=== PATIENT | female | born 1955 | race Caucasian/White ===

== ENCOUNTER 2017-07-30 15:08 | Emergency (ER) | payer OTHER ==
[2017-07-30 15:24] VITALS: RESP 16; TEMP 98.8
--- NOTE | 2017-07-30 17:14 | EDPHY ---
H & P Smoking Status: Former smoker Time Seen by Provider: 07/30/17 16:24 HPI/ROS: CHIEF COMPLAINT: Fell hiking, head injury HISTORY OF PRESENT ILLNESS: 61-year-old female presents to the emergency department by private vehicle after she fell hiking and hit her head. Patient states that she was hiking down a trail and lost her footing and fell and apparently rolled. She does not think that she lost consciousness although she does not remember rolling down. She complains of specially frontal headache. She is also complaining of some neck pain. She sustained multiple abrasions which she stated "blood a lot ". She believes her tetanus shot is current. She denies nausea or vomiting. Denies visual changes. Denies abdominal pain. Denies chest pain or difficulty breathing. She denies any presyncopal symptoms prior to her fall. She sustained abrasions to her upper extremities as well. REVIEW OF SYSTEMS: Constitutional: No fever, no chills. Eyes: No double or blurry vision. ENT: No sore throat. Respiratory: No cough, no shortness of breath. Cardiac: No chest pain. Gastrointestinal: No abdominal pain, vomiting or diarrhea. Genitourinary: No dysuria. Musculoskeletal: Neck pain as above. No back pain. Skin: Abrasions. No rashes. Neurological: headache. (Danielle Blum) Past Medical/Surgical History: Scoliosis, multiple back surgeries (Danielle Blum) Social History: Single and lives in [place] (Danielle Blum) Physical Exam: General Appearance: Alert, no distress. Eyes: Pupils equal and round. Extraocular motions are all intact. ENT: Mouth: Mucous membranes moist. No dental injury or malocclusion. No hemotympanum. Respiratory: No wheezing, rhonchi, or rales, lungs are clear to auscultation. Cardiovascular: Regular rate and rhythm. Gastrointestinal: Abdomen is soft and nontender, no masses, no rebound or guarding, bowel sounds normal. Neurological: Alert and oriented x 3, cranial nerves II through XII grossly intact Skin: Abrasions to the right side of the cheek. Superficial abrasions to bilateral forearms and bilateral humerus. Very superficial abrasion noted to the anterior aspect of her left knee. Warm and dry, no rashes. Musculoskeletal: Nontender to palpate along the cervical, thoracic or lumbar spine. Neck is supple. Extremities: Full range of motion and no peripheral edema. Moving all extremities well. Psychiatric: Patient is oriented X 3, there is no agitation. (Danielle Blum) Constitutional: Initial Vital Signs Temperature (C) 37.1 C 07/30/17 15:17 Heart Rate 88 07/30/17 15:17 Respiratory Rate 16 07/30/17 15:17 Blood Pressure 137/87 H 07/30/17 15:17 O2 Sat (%) 97 07/30/17 15:17 O2 Delivery Mode Room Air Allergies/Adverse Reactions: chlorpheniramine [From Donatussin DM] Allergy (Intermediate, Verified 07/30/17 15:26) Other-Enter Comments dexchlorpheniramine tannate [From Donatussin DM] Allergy (Verified 04/10/13 18: 00) dextromethorphan HBr [From Donatussin DM] Allergy (Verified 04/10/13 18:00) dextromethorphan tannate [From Donatussin DM] Allergy (Verified 04/10/13 18:00) guaifenesin [From Donatussin DM] Allergy (Verified 04/10/13 18:00) phenylephrine HCl [From Donatussin DM] Allergy (Verified 04/10/13 18:00) phenylephrine tannate [From Donatussin DM] Allergy (Verified 04/10/13 18:00) pseudoephedrine [From Donatussin DM] Allergy (Verified 04/10/13 18:00) Home Medications: Medication Instructions Recorded Levothyroxine 04/10/13 Lorazepam 04/10/13 Supplements 04/10/13 Vicodin 04/10/13 amLODIPine BESYLATE [Norvasc 5 mg 5 mg PO DAILY #10 tab 04/10/13 (RX)] Glucosam HCl/MSM/Chondro Parada A 07/30/17 Hydrocodon-Acetaminophen 5-325 07/30/17 Liothyronine Sodium 07/30/17 Medical Decision Making - Diagnostics Imaging: Discussed imaging studies w/ compliance representative Radiologist - Diagnostics Imaging Results: Imaging Impressions Cervical Spine CT 07/30/17 17:01 Impression: 1. No definite fracture. 2. Moderate cervical spondylosis resulting in mild to moderate central canal stenosis and bilateral neural foraminal stenosis, especially at C4-C5, C5-C6, and C6-C7. 3. If there is persistent pain or neurological deficit, recommend MRI cervical spine and consider flexion and extension views, if clinically indicated. Findings and recommendations discussed with emergency department physician stores assistant, Danielle Blum PA-C at 1745 hours on July 30, 2017. Final report concurs with initial preliminary interpretation. Head CT 07/30/17 17:01 Impression: 1. Normal CT brain without contrast. 2. No skull fracture. Findings and recommendations discussed with emergency department physician stores assistant, Danielle Blum PA-C at 1743 hours on July 30, 2017. Final report concurs with initial preliminary interpretation. ED Course/Re-evaluation: 61-year-old female presents to the emergency department after she fell hiking. Patient complains of diffuse headache. I recommended CT imaging of her brain. I discussed the pros and cons of this including radiation exposure the patient agreed. Patient also has diffuse neck pain. CT imaging of the cervical spine was also ordered to rule out possible fracture. CT imaging of the head and cervical spine were negative. No fractures, intracranial bleeding. Her wounds were thoroughly cleansed and dressed. No sutures required. She was given closed-head injury precautions. She was told to avoid any activity that might put her at risk for another head injury for at least 1 week. (Danielle Blum) The patient was evaluated and managed by the physician stores assistant. I have reviewed this chart and I agree with the findings and plan of care as documented , as indicated by my signature. I am the secondary supervising physician. ( Sasha Rodriguez) Differential Diagnosis: Head injury including but not limited to concussion, skull fracture, intraparenchymal contusion, subarachnoid, subdural and epidural hematoma. Neck pain including but not limited to muscular pain, herniated disc, spine fracture (Danielle Blum) Departure - Departure Disposition: Home, Routine, Self-Care Clinical Impression: Facial abrasion, Facial contusion, Head injury due to trauma, Cervical strain, acute Condition: Good Instructions: Cervical Strain (ED), Head Injury (ED), Abrasion (ED), Acute Wounds (ED) Additional Instructions: Avoid any activity that might put you at risk for another head injury for at least 1 week. Return to the emergency department if he developed worsening headache, vomiting , altered mental status, or if he seems worse in any way. Referrals: BHAVANI MARTINEZ [Primary Care Provider] - As per Instructions Stand Alone Forms: Work Excuse
[2017-07-30 18:08] VITALS: BP 124/76; PULSE 78; O2SAT 98
== END 2017-07-30 18:08 | disposition home or self-care (01) ==
DX: S16.1XXA Strain of muscle, fascia and tendon at neck level, initial encounter (principal); S00.83XA Contusion of other part of head, initial encounter; S00.81XA Abrasion of other part of head, initial encounter; Z87.891 Personal history of nicotine dependence; W01.198A Fall on same level from slipping, tripping and stumbling with subsequent striking against other object, initial encounter; Y99.8 Other external cause status; Y93.01 Activity, walking, marching and hiking

== ENCOUNTER → 2017-08-10 | Outpatient (CLI) | payer OTHER ==
[~2017-08-10] MED LIST: GADOBUTROL 10 ML VIAL IVP ONE
== END ==
LOC: FIMAGING 18:40
PROVIDERS: ATTEND Physician Assistant Medical
DX: G51.3 Clonic hemifacial spasm (principal)
CPT/HCPCS: A9585